=== PATIENT | female | born 1995 | race African-American/Black ===

== ENCOUNTER 2017-08-19 10:09 | Emergency (ER) | payer SELFPAY ==
[~2017-08-19] VITALS: Ht 157.5 cm; Wt 66.0 kg
[~2017-08-19 10:09] MED LIST: PHENTAB; ZOFR4TAB3 SL
[2017-08-19 10:14] VITALS: BP 139/66; PULSE 83; RESP 15; TEMP 98.4; O2SAT 100
--- NOTE | 2017-08-19 10:40 | PD ---
HPI Chief Complaint: Abdominal Pain Time Seen by Provider: 10:26 Travel History International Travel<30 days: No Contact w/Intl Traveler<30days: No Traveled to known affect area: No History of Present Illness HPI Patient is a 21-year-old female presents emergency department for several complaints. Patient states she has had blood out of her rectum blood out of her vagina and thinks she has a hemorrhoid. Patient denies any weakness dizziness nausea vomiting diarrhea or constipation. She states is never happened to her before. Denies possibility for . Her primary care physician is in [place] as she is a student at college in [employer]. She states she just was concerned and called her mother and her mother told her to come to the emergency department to be seen. States symptoms are mild, resolved, associated signs and symptoms as above, [facility] Social History Alcohol Use: Yes (rare) Tobacco Use: No Substance Use: No Allergies-Medications (Allergen,Severity, Reaction): Coded Allergies: No Known Allergies (Unverified , 08/26/15) Reported Meds & Prescriptions Reported Meds & Active Scripts Active Diflucan (Fluconazole) 150 Mg Tab 150 Mg PO ONCE Review of Systems Except as stated in HPI: all other systems reviewed are Neg Physical Exam Narrative GENERAL: Patient exam was performed with female nurse mobile paint specialist present all times, patient calm and cooperative, reading a textbook in her bed in no obvious distress SKIN: Focused skin assessment warm/dry. HEAD: Atraumatic. Normocephalic. EYES: Pupils equal and round. No scleral icterus. No injection or drainage. ENT: No nasal bleeding or discharge. Mucous membranes pink and moist. NECK: Trachea midline. No JVD. CARDIOVASCULAR: Regular rate and rhythm. No murmur appreciated. RESPIRATORY: No accessory muscle use. Clear to auscultation. Breath sounds equal bilaterally. GASTROINTESTINAL: Abdomen soft, non-tender, nondistended. Hepatic and splenic margins not palpable. GENITOURINARY: No internal bleeding, no mass no lesion no cervical motion tenderness and no bimanual tenderness. No external lesion either peer Rectal exam: In the 12 o'clock position there is a small scab probably from healing hemorrhoid, there is no obvious hemorrhoid otherwise. No internal medicine no fissure. No bleeding is noted. MUSCULOSKELETAL: No obvious deformities. No clubbing. No cyanosis. No edema. NEUROLOGICAL: Awake and alert. No obvious cranial nerve deficits. Motor grossly within normal limits. Normal speech. PSYCHIATRIC: Appropriate mood and affect; insight and judgment normal. Data Data Last Documented VS Vital Signs Date Time Temp Pulse Resp B/P (MAP) Pulse Ox O2 Delivery O2 Flow Rate FiO2 08/19/17 13:08 75 15 115/72 (86) 100 08/19/17 10:50 Room Air 08/19/17 10:14 98.4 Orders Orders Complete Blood Count With Diff (08/19/17 10:37) Comprehensive Metabolic Panel (08/19/17 10:37) Lipase (08/19/17 10:37) Prothrombin Time / Inr (Pt) (08/19/17 10:37) Act Partial Throm Time (Ptt) (08/19/17 10:37) Urinalysis - C+S If Indicated (08/19/17 10:37) Iv Access Insert/Monitor (08/19/17 10:37) Ecg Monitoring (08/19/17 10:37) Oximetry (08/19/17 10:37) Sodium Chloride 0.9% Flush (Ns Flush) (08/19/17 10:45) Ed Urine Pregnancytest Poc (08/19/17 10:37) Wet Prep Profile (08/19/17 10:37) Gc And Chlamydia Pcr (08/19/17 10:37) Ed Discharge Order (08/19/17 12:55) Labs Laboratory Tests Test 08/19/17 11:15 08/19/17 12:20 White Blood Count 7.9 TH/MM3 Red Blood Count 4.39 MIL/MM3 Hemoglobin 12.1 GM/DL Hematocrit 35.3 % Mean Corpuscular Volume 80.5 FL Mean Corpuscular Hemoglobin 27.6 PG Mean Corpuscular Hemoglobin Concent 34.2 % Red Cell Distribution Width 17.1 % Platelet Count 234 TH/MM3 Mean Platelet Volume 10.2 FL Neutrophils (%) (Auto) 60.5 % Lymphocytes (%) (Auto) 32.5 % Monocytes (%) (Auto) 4.9 % Eosinophils (%) (Auto) 1.5 % Basophils (%) (Auto) 0.6 % Neutrophils # (Auto) 4.8 TH/MM3 Lymphocytes # (Auto) 2.6 TH/MM3 Monocytes # (Auto) 0.4 TH/MM3 Eosinophils # (Auto) 0.1 TH/MM3 Basophils # (Auto) 0.0 TH/MM3 CBC Comment DIFF FINAL Differential Comment Prothrombin Time 11.0 SEC Prothromb Time International Ratio 1.1 RATIO Activated Partial Thromboplast Time 28.5 SEC Urine Color LIGHT-YELLOW Urine Turbidity CLEAR Urine pH 6.5 Urine Specific Sullivan 1.005 Urine Protein NEG mg/dL Urine Glucose (UA) NEG mg/dL Urine Ketones NEG mg/dL Urine Occult Blood NEG Urine Nitrite NEG Urine Bilirubin NEG Urine Urobilinogen LESS THAN 2.0 MG/DL Urine Leukocyte Esterase NEG Urine RBC LESS THAN 1 /hpf Urine WBC LESS THAN 1 /hpf Urine Squamous Epithelial Cells 1 /hpf Microscopic Urinalysis Comment CULT NOT INDICATED Blood Urea Nitrogen 13 MG/DL Creatinine 0.86 MG/DL Random Glucose 67 MG/DL Total Protein 8.7 GM/DL Albumin 3.9 GM/DL Calcium Level 9.1 MG/DL Alkaline Phosphatase 85 U/L Aspartate Amino Transf (AST/SGOT) 22 U/L Alanine Aminotransferase (ALT/SGPT) 19 U/L Total Bilirubin 0.2 MG/DL Sodium Level 138 MEQ/L Potassium Level 4.0 MEQ/L Chloride Level 107 MEQ/L Carbon Dioxide Level 23.3 MEQ/L Anion Gap 8 MEQ/L Estimat Glomerular Filtration Rate 101 ML/MIN Lipase 163 U/L Clue Cells (Wet Prep) NONE SEEN Vaginal Trichomonas (Wet Prep) NONE SEEN Vaginal Yeast (Wet Prep) PRESENT Chlamydia trachomatis DNA (PCR) NOT DETECTED Neisseria gonorrhoeae DNA (PCR) NOT DETECTED MDM Medical Decision Making Medical Screen Exam Complete: Yes Emergency Medical Condition: Yes Differential Diagnosis Hemorrhoidal bleeding resolved, fissure bleeding resolved, , anemia peer Narrative Course Patient room to the emergency primary, labs and physical exam are reassuring. At this time there is no indication further workup. Discussed with her symptomatic management follow-up with an [facility] [employer] and a GI doctor, she is stable for discharge. Discussed return to ED criteria Diagnosis Primary Impression: Yeast infection Additional Impression: Rectal bleed Referrals: Krysta Castañeda MD Med/Other Pt SpecificInfo: Prescription(s) given Scripts Fluconazole (Diflucan) 150 Mg Tab 150 MG PO ONCE for Infection, #1 TAB 0 Refills Prov: Agusitn Barraza MD 08/19/17 Disposition: 01 DISCHARGE HOME Condition: Stable Agustin Barraza MD Aug 19, 2017 10:40
[2017-08-19] MEDS ORDERED: SODIUM CHLORIDE 0.9% FLUSH 10 ML FLUSH IV FLUSH PRN (10:45)
[2017-08-19 10:50] VITALS: BP 129/77; PULSE 75; RESP 17; O2SAT 100
[2017-08-19 11:42] LABS: BILIRUBIN, URINE NEG (NEG); BLOOD, URINE NEG (NEG); GLUCOSE,URINE NEG (NEG); KETONE, URINE NEG (NEG); NITRITE,URINE NEG (NEG); PH, URINE 6.5 (5.0-8.5); SQUAMOUS EPITHELIAL CELL URINE 1 /hpf (0-5); URINE COLOR LIGHT-YELLOW (YELLW/STRAW); URINE LEUKOCYTE ESTERASE NEG (NEG)
[2017-08-19 11:43] LABS: AUTOMATED NEUTROPHIL # 4.8 TH/MM3 (1.8-7.7); BASOPHIL % 0.6 % (0.0-2.0); EOSINOPHIL # 0.1 TH/MM3 (0-0.4); EOSINOPHIL % 1.5 % (0.0-4.0); HEMATOCRIT 35.3 % (35.0-46.0); HEMOGLOBIN 12.1 GM/DL (11.6-15.3); LYMPH % 32.5 % (9.0-44.0); LYMPHOCYTE # 2.6 TH/MM3 (1.0-4.8); MEAN CELL VOLUME 80.5 FL (80.0-100.0); MEAN CORPUSCULAR HEMOGLOBIN 27.6 PG (27.0-34.0); MEAN CORPUSCULAR HGB CONC 34.2 % (32.0-36.0); MEAN PLATELET VOLUME 10.2 FL (7.0-11.0); MONO % 4.9 % (0.0-8.0); MONOCYTE # 0.4 TH/MM3 (0-0.9); NEUT % 60.5 % (16.0-70.0); PLATELET COUNT 234 TH/MM3 (150-450); RED BLOOD COUNT 4.39 MIL/MM3 (4.00-5.30); RED CELL DISTRIBUTION WIDTH 17.1 % (11.6-17.2); WHITE BLOOD COUNT 7.9 TH/MM3 (4.0-11.0)
[2017-08-19 11:53] LABS: ALT (GPT) 19 U/L (10-53)
[2017-08-19 11:56] LABS: ALKALINE PHOSPHATASE 85 U/L (45-117); TOTAL BILIRUBIN ADULT 0.2 MG/DL (0.2-1.0); TOTAL PROTEIN 8.7 GM/DL (6.4-8.2)
[2017-08-19 11:57] LABS: INTERNATIONAL NORMALIZED RATIO 1.1 RATIO
[2017-08-19 11:59] LABS: ALBUMIN 3.9 GM/DL (3.4-5.0); AST (GOT) 22 U/L (15-37); BICARBONATE 23.3 MEQ/L (21.0-32.0); BLOOD UREA NITROGEN 13 MG/DL (7-18); CALCIUM 9.1 MG/DL (8.5-10.1); CHLORIDE 107 MEQ/L (98-107); CREATININE 0.86 MG/DL (0.50-1.00); GLOMERULAR FILTRATION RATE 101 ML/MIN (>89); GLUCOSE,RANDOM 67 MG/DL (74-106); SODIUM (NA) 138 MEQ/L (136-145)
[2017-08-19] MEDS ORDERED: DIFL150T PO (12:54)
[2017-08-19 13:08] VITALS: BP 115/72
== END 2017-08-19 13:08 | disposition home or self-care (01) ==
LOC: NEPD 10:09
DX: B37.9 Candidiasis, unspecified (principal); K62.5 Hemorrhage of anus and rectum
CPT/HCPCS: 80053; 81001; 83690; 84703; 85025; 85610; 85730; 87210; 87491; 87591; 99283

== ENCOUNTER 2017-09-05 03:49 | Emergency (ER) | payer SELFPAY ==
[~2017-09-05 03:49] MED LIST changes: +DIFL150T PO; -PHENTAB; -ZOFR4TAB3 SL
[2017-09-05 03:53] VITALS: BP 125/73; PULSE 80; RESP 16; TEMP 98.4; O2SAT 100
[2017-09-05] MEDS ORDERED: IBUP1TAB7 PO (05:33)
[2017-09-05] MEDS ORDERED: AMOX875T PO (05:33)
--- NOTE | 2017-09-05 05:34 | PD ---
HPI Chief Complaint: ENT Complaint Time Seen by Provider: 05:28 Travel History International Travel<30 days: No Contact w/Intl Traveler<30days: No Traveled to known affect area: No History of Present Illness HPI Patient is a 21-year-old female presenting to the emergency department for evaluation of 2 days of nasal congestion, sore throat, loss of her voice. She denies any fevers, chills, chest pain, shortness of breath, nausea, vomiting. Patient states she has been taking DayQuil and NyQuil with no relief of her symptoms. She reports that she has pain on the left side of her throat when she swallows. She denies any dysphasia or drooling. Symptom onset was gradual , symptoms are mild to moderate in nature. There are no alleviating factors. She denies any significant past medical history. [facility] Past Medical History Medical History: Denies Significant Hx Diminished Hearing: No ?: Not Past Surgical History Surgical History: No Previous Surgery Social History Alcohol Use: No Tobacco Use: No Substance Use: No Allergies-Medications (Allergen,Severity, Reaction): Coded Allergies: No Known Allergies (Unverified Adverse Reaction, Unknown, 09/05/17) Reported Meds & Prescriptions Reported Meds & Active Scripts Active No Active Prescriptions or Reported Medications Review of Systems Except as stated in HPI: all other systems reviewed are Neg General / Constitutional: No: Fever HENT: Positive: Sore Throat, Rhinitis, Congestion, No: Headaches, Neck Stiffness, Earache Cardiovascular: No: Chest Pain or Discomfort Respiratory: No: Cough, Shortness of Breath Gastrointestinal: No: Nausea Physical Exam Narrative GENERAL: Well-developed, well-nourished, alert female. Presenting in no acute distress. SKIN: Warm and dry. HEAD: Atraumatic. Normocephalic. EYES: Pupils equal and round. No scleral icterus. No injection or drainage. ENT: No nasal bleeding or discharge. Mucous membranes pink and moist. Posterior pharynx with cobblestone appearance, no erythema, tonsillar hypertrophy noted. No exudates noted. Airway is patent uvula is midline. NECK: Trachea midline. No JVD. CARDIOVASCULAR: Regular rate and rhythm. RESPIRATORY: No accessory muscle use. Clear to auscultation. Breath sounds equal bilaterally. GASTROINTESTINAL: Abdomen soft, non-tender, nondistended. Hepatic and splenic margins not palpable. MUSCULOSKELETAL: Extremities without clubbing, cyanosis, or edema. No obvious deformities. NEUROLOGICAL: Awake and alert. No obvious cranial nerve deficits. Motor grossly within normal limits. Five out of 5 muscle strength in the arms and legs. Normal speech. PSYCHIATRIC: Appropriate mood and affect; insight and judgment normal. Data Data Last Documented VS Vital Signs Date Time Temp Pulse Resp B/P (MAP) Pulse Ox O2 Delivery O2 Flow Rate FiO2 09/05/17 03:53 98.4 80 16 125/73 (90) 100 [facility] Medical Decision Making Medical Screen Exam Complete: Yes Emergency Medical Condition: Yes Interpretation(s) Vital Signs Date Time Temp Pulse Resp B/P (MAP) Pulse Ox O2 Delivery O2 Flow Rate FiO2 09/05/17 03:53 98.4 80 16 125/73 (90) 100 Differential Diagnosis Pharyngitis versus viral syndrome versus URI versus strep pharyngitis versus other Narrative Course Patient is a 21-year-old female presenting for evaluation of cold and flulike symptoms. Patient is afebrile, her vital signs are stable. She is well- appearing. Physical examination is consistent with viral syndrome. Patient was encouraged to continue symptom management. This was explained to her in detail. She is encouraged to maintain adequate fluid intake and rest. She will be given a prescription for backup antibiotic however she was advised that it will not eradicate her symptoms as her symptoms are likely viral in nature. She was advised that if she began to take the antibiotic she needed to complete the full course. She was advised to start it if her symptoms began to improve and suddenly started to get worse again or if they persisted beyond 5-7 days. She verbalized understanding of these instructions. Patient stable for discharge. Diagnosis Primary Impression: URI (upper respiratory infection) Qualified Codes: J06.9 - Acute upper respiratory infection, unspecified Additional Impression: Laryngitis Referrals: Primary Care Physician Patient Instructions: General Instructions, Laryngitis (ED), Upper Respiratory Infection (ED) Additional Instructions: Take medication as needed and as directed for pain or fever Increase oral fluid intake Continue symptom management Follow-up with your primary doctor Return to emergency department for any new or worsening symptoms If you start antibiotics complete full course even if you begin to feel better Med/Other Pt SpecificInfo: Prescription(s) given Scripts Amoxicillin (Amoxicillin) 875 Mg Tab 875 MG PO BID for Infection, #20 TAB 0 Refills Prov: Tawana Mendez 09/05/17 Ibuprofen (Ibuprofen) 800 Mg Tab 800 MG PO Q6HR Y for PAIN, #40 TAB 0 Refills Prov: Tawana Mendez 09/05/17 Disposition: 01 DISCHARGE HOME Condition: Stable Tawana Mendez Sep 05, 2017 05:33
== END 2017-09-05 05:55 | disposition home or self-care (01) ==
LOC: NEPD 03:49
DX: J04.0 Acute laryngitis (principal)
CPT/HCPCS: 99283